=== PATIENT | female | born 1960 | race African-American/Black ===

== ENCOUNTER 2022-04-22 14:41 | Emergency (ER) | payer MEDICAID, OTHER ==
[~2022-04-22] VITALS: Ht 175.3 cm; Wt 81.0 kg
[2022-04-22] MEDS ORDERED: KETOROLAC 60MG/2ML VIAL IM ONE (15:00)
[2022-04-22 16:14] VITALS: BP 112/79
[2022-04-22] MEDS ORDERED: NAPR-681 MT (16:28)
== END 2022-04-22 16:37 | disposition home or self-care (01) ==
LOC: ER 14:41
DX: M25.561 Pain in right knee (principal)
CPT/HCPCS: 73564; 96372; 99283; J1885

== ENCOUNTER 2022-12-23 10:48 | Emergency (ER) | payer OTHER ==
[~2022-12-23] VITALS: Ht 180.3 cm; Wt 80.0 kg
[~2022-12-23 10:48] MED LIST: NAPR-681 MT
[2022-12-23 10:52] VITALS: BP 99/59
[2022-12-24] MEDS ORDERED: NAPR-681 MT (11:57)
== END 2022-12-23 13:53 | disposition left against medical advice (07) ==
LOC: ER 10:48
DX: R10.9 Unspecified abdominal pain (principal)
CPT/HCPCS: 99281

== ENCOUNTER 2022-12-24 04:35 | Emergency (ER) | payer OTHER ==
[~2022-12-24] VITALS: Ht 180.3 cm; Wt 86.6 kg
[2022-12-24] MEDS ORDERED: KETOROLAC 15MG/ML VIAL IV ONE (07:00)
[2022-12-24 07:02] VITALS: BP 130/63
[2022-12-24 07:13] LABS: CLARITY URINE CLEAR (CLEAR); COLOR URINE YELLOW (YELLOW); KETONES URINE NEGATIVE (NEGATIVE); LEUKOCYTE ESTERASE URINE NEGATIVE (NEGATIVE); NITRITE URINE NEGATIVE (NEGATIVE); OCCULT BLOOD URINE NEGATIVE (NEGATIVE); PROTEIN URINE NEGATIVE (NEGATIVE); SPECIFIC GRAVITY URINE 1.023 (1.005-1.030); UROBILINOGEN URINE 0.2 E.U./dL (0.2-1.0)
[2022-12-24 07:14] LABS: BASOPHILS % 0.4 % (0.0-2.0); EOSINOPHILS % 2.3 % (0.0-5.0); HEMATOCRIT. 40.5 % (36.0-48.0); HEMOGLOBIN. 13.5 g/dL (12.0-16.0); LYMPHOCYTES % 34.6 % (20.0-50.0); MEAN PLATELET VOLUME 9.2 fl (7.4-10.4); MONOCYTES % 6.4 % (2.0-8.0); NEUTROPHILS % 56.3 % (40.0-76.0); PLATELET 218 x1000/uL (130-400); RED CELL DISTRIBUTION WIDTH 14.3 % (11.6-14.6)
[2022-12-24 07:25] LABS: CHLORIDE 103 mEq/L (98-107)
[2022-12-24] MEDS ORDERED: IOHEXOL-300 100 ML BOTTLE ONE (09:32)
[2022-12-24] MEDS ORDERED: NAPR-681 MT (11:57)
== END 2022-12-24 12:30 | disposition home or self-care (01) ==
LOC: ER 05:20
DX: R10.30 Lower abdominal pain, unspecified (principal)
CPT/HCPCS: 36415; 74177; 80053; 81003; 83605; 83690; 85025; 85379; 96374; 99285; J1885; Q9967; Z7610

== ENCOUNTER 2025-01-13 13:44 | Emergency (ER) | payer OTHER ==
[~2025-01-13] VITALS: Ht 180.3 cm; Wt 79.4 kg
[2025-01-13 13:45] VITALS: BP 119/63; PULSE 72; RESP 14; TEMP 36.8; O2SAT 99
== END 2025-01-13 16:12 | disposition home or self-care (01) ==
LOC: ER 13:51
DX: M20.12 Hallux valgus (acquired), left foot (principal); Z79.1 Long term (current) use of non-steroidal anti-inflammatories (NSAID); M79.672 Pain in left foot
CPT/HCPCS: 73630; 99283

== ENCOUNTER 2025-01-17 16:04 | Emergency (ER) | payer OTHER ==
[~2025-01-17] VITALS: Ht 177.8 cm; Wt 72.0 kg
[2025-01-17 16:17] VITALS: O2SAT 100
[2025-01-17 18:15] VITALS: BP 118/79; PULSE 60; RESP 19; O2SAT 100
[2025-01-17] MEDS ORDERED: BACITRACIN ZINC OINT UDPKT TOP ONE (18:15)
[2025-01-17] MEDS ORDERED: ACETAMINOPHEN 325MG TABLET PO ONE (18:15)
[2025-01-17] MEDS ORDERED: IBUP-2028 MT (19:01)
== END 2025-01-17 18:25 | disposition home or self-care (01) ==
LOC: ER 16:09
DX: S80.211A Abrasion, right knee, initial encounter (principal); Z98.890 Other specified postprocedural states; Z79.899 Other long term (current) drug therapy; Z79.1 Long term (current) use of non-steroidal anti-inflammatories (NSAID); W01.0XXA Fall on same level from slipping, tripping and stumbling without subsequent striking against object, initial encounter; Y93.89 Activity, other specified; Y92.89 Other specified places as the place of occurrence of the external cause; Y99.8 Other external cause status
CPT/HCPCS: 73560; 99283

== ENCOUNTER 2025-05-07 11:48 | Emergency (ER) | payer OTHER ==
[~2025-05-07] VITALS: Ht 180.3 cm; Wt 79.0 kg
[~2025-05-07 11:48] MED LIST changes: +IBUP-2028 MT
[2025-05-07 12:02] VITALS: O2SAT 100
[2025-05-07] MEDS ORDERED: IBUPROFEN 600MG TABLET PO ONE (13:15)
[2025-05-07] MEDS ORDERED: IBUP-2029 MT (13:45)
[2025-05-07 14:47] VITALS: BP 143/71; PULSE 68; RESP 18; TEMP 37.1; O2SAT 96
== END 2025-05-07 14:47 | disposition home or self-care (01) ==
LOC: ER 11:48
DX: S83.92XA Sprain of unspecified site of left knee, initial encounter (principal); M17.12 Unilateral primary osteoarthritis, left knee; Z79.1 Long term (current) use of non-steroidal anti-inflammatories (NSAID); X58.XXXA Exposure to other specified factors, initial encounter; Y93.89 Activity, other specified; Y92.89 Other specified places as the place of occurrence of the external cause; Y99.8 Other external cause status
CPT/HCPCS: 73502; 73560; 73600; 99284